=== PATIENT | female | born 1980 ===

== ENCOUNTER 2022-08-21 01:24 | Emergency (ER) | payer OTHER, SELFPAY ==
--- OUTSIDE RECORDS SUMMARY | 2022-08-21 01:29 | XMS REPORT | Continuity of Care Document ---
:1980 Author Organization [facility] t Address [address] [place] [address] Care Team Providers Name Role Phone Hillary Brito Primary Care Physician TOSHA ORTEGA Attending Clinician Unavailable HILLARY HELMS Attending Clinician Unavailable Doctor Unassigned, [place] Attending Clinician Unavailable KARTIK ANNA Attending Clinician Unavailable Ember Cornejo MA Attending Clinician Unavailable Tosha Higginbotham Attending Clinician Quentin Carmona Attending Clinician Payers Payer Name Policy Type Policy Number Effective Date Expiration Date S ource Problems Condition Condition Condition Status Onset Resolution Last Treating Co mments Source Name Details Category Date Date Treatment Clinician Date Overweight Overweight Disease Active U nivers (BMI (BMI 9-03 ity of 25.0-29.9) 25.0[place]29.9[place] Encounter Encounter Disease Active Uni vers for other for other 08-03 ity of general general 00:00: [place] counseling counseling 00 Me dical or advice or advice Bran ch on on contracept contracept ion ion Irregular Irregular Disease Active Uni vers menstrual menstrual 08-03 ity of cycle cycle 00:00: [address] Depression Depression Disease Active U nivers , , 08-03 it[place]specif[place] Medical depression depression Br anch type type O36.8290 - O36.8290 Diagnosis Active 2019-02-18 Memoria - 02-18 14:38:00 l ANEMIA AND ANEMIA AND 00:01: [place] THROMBOCYT THROMBOCYT 00 OP OP Active 02/18/2019 MH OPID Omar Allergies, Adverse Reactions, Alerts Allergy Allergy Status Severity Reaction(s) Onset Inactive Treating Comm ents Source Name Type Date Date Clinician No Known DA Active U 2018-12 [facility] Allergie [facility] 00:00: [address] NO KNOWN Drug Active Univers ALLERGIE Class ity of S [facility] Social History Social Habit Start Date Stop Date Quantity Comments Source Exposure to 2022-07-21 2022-07-31 Not sure [facility] SARS-CoV-2 00:00:00 23:57:00 [facility] (event) [place] Tobacco use and 2021-08-03 2021-08-03 Smokeless tobacco Un iversity of exposure 00:00:00 00:00:00 non-user [facility] Alcohol intake 2021-08-03 2021-08-03 Ex-drinker [facility] 00:00:00 00:00:00 (finding) [facility] Sex Ass[birth year] Universit y of 00:00:00 00:00:00 [facility] Smoking Status Start Date Stop Date Source Never smoked tobacco [facility] Medications Ordered Filled Start Stop Current Ordering Indication Dosage Frequency Signature Comments Components Source Medication Medication Date Date Medication? Clinician (SIG) Name Name No known No Univers medications 08-03 ity of 13:11: [address] No known No No known Unive rs medications 08-03 medication it y of 13:11: s [place] 28 Medical Branch TRIMETHOPRI 2008-12- No [id number] Take 2 Univers M-SULFAMETH 01-03 tablets by i ty of OXAZOLE 00:00: 00:00 mouth [place] 160-800 MG 00 :00 every 12 Medic al ORAL TAB hours for Branch ten days ULTRA 50 2008-121- No [id number] one tablet Univers MG ORAL TAB 01-03 PO every ity of 00:00: 00:00 6-8 hours [place] 00 :00 as needed Medical for pain Branch Immunizations Ordered Filled Immunization Date Status Comments [facility] e Immunization Name Name SARS-COV-2 COVID-19 2021-10-24 Completed Unive rsity of MODERNA VACCINE 00:00:00 [facility] ical Branch SARS-COV-2 COVID-19 2021-10-24 Completed Unive rsity of MODERNA 12+ YRS 00:00:00 [facility] VACCINE Branch SARS-COV-2 COVID-19 2021-03-28 Completed Unive rsity of MODERNA VACCINE 00:00:00 [facility] Branch SARS-COV-2 COVID-19 2021-03-28 Completed Unive rsity of MODERNA 12+ YRS 00:00:00 [facility] VACCINE Branch SARS-COV-2 COVID-19 2021-02-28 Completed Unive rsity of MODERNA VACCINE 00:00:00 [facility] SARS-COV-2 COVID-19 2021-02-28 Completed Unive rsity of MODERNA 12+ YRS 00:00:00 [facility] VACCINE [place] Vital Signs Vital Name Observation Time Observation Value Comments Source Systolic blood 2021-08-03 17:59:00 134 mm[Hg] Univer sity of pressure [facility] Diastolic blood 2021-08-03 17:59:00 86 mm[Hg] Unive rsity of pressure [facility] Heart rate 2021-08-03 17:58:00 81 /min [facility] Body temperature 2021-08-03 17:58:00 36.28 Deisy [facility] Respiratory rate 2021-08-03 17:58:00 16 /min [facility] Body height 2021-08-03 17:58:00 162.6 cm [facility] Body weight 2021-08-03 17:58:00 74.299 kg [facility] BMI 2021-08-03 17:58:00 28.12 kg/m2 [facility] Procedures Procedure Date / Time Performed Performing Clinician [facility] e CONSENT/REFUSAL FOR 2022-08-01 18:45:29 Doctor Unassigned, No Un [facility] DIAGNOSIS AND Name [facility] TREATMENT POCT TEST 2021-08-03 18:02:00 Tosha Ortega [facility] Encounters Start End Encounter Admission Attending Care Care Encounter Source Date/Time Date/Time Type Type Clinicians Facility Department ID 2022-08-06 2022-08-06 Outpatient Rodrick ORTEGA [facility] [id number] Univers 13:00:00 13:00:00 TOSHA [facility] 2022-08-01 2022-08-01 Outpatient R AKINSIPE, [facility] [id number] Univers 14:15:00 14:15:00 HILLARY [id number] [facility] 2022-08-01 2022-08-01 Outpatient R AKINSIPE, [facility] [id number] Univers 13:45:00 13:45:00 HILLARY [facility] 2022-08-01 2022-08-01 Orders Doctor DE LEON [id number] Univers 00:00:00 00:00:00 Only Unassigned, BEBE 350.1.13.10 ity of [place] [facility] 4.2.7.2.686 Ivan as [id number] [address] 2022-07-25 2022-07-25 Outpatient R AKINSIPE, [facility] [id number] Univers 14:15:00 14:15:00 HILLARY [id number] [facility] 2022-07-25 2022-07-25 Outpatient R AKINSIPE, [facility] [id number] Univers 14:15:00 14:15:00 [facility] 2022-06-05 Outpatient R WILFRIDO, [facility] [id number] Univers 14:15:00 14:15:00 KARTIK [id number] ity [facility] [place] [facility] 2022-05-30 2022-05-30 Case JEOVANY Cornejo [id number] Univers 00:00:00 00:00:00 Management Ember KEARNS 350.1.13.10 [place] [id number] [address] 2021-08-03 2021-08-03 [facility] [id number] Univers 12:48:24 13:42:30 Visit Tosha Rodrick IMMIGRATION INSPECTOR 350.1.13.10 ity of [facility] 4.2.7.2.686 Ivan as MATERNAL [id number] [facility] ical & CHILD [address] [place] [address] 2021-08-03 2021-08-03 Outpatient R JORDAN [facility] [id number] Univers 13:00:00 13:00:00 ANETAROSSANA posaday o f [facility] 2021-08-03 2021-08-03 Outpatient R [facility] [id number] Univers 12:30:00 12:30:00 [id number] [facility] 2019-02-18 2019-02-19 Outpt Diag nullFlavo [facility] [id number] Memoria 19:29:00 04:59:00 Services r Outpatient 00 l Imaging [facility] 2019-02-18 2019-02-19 Outpt Diag nullFlavo [facility] [id number] Memoria 19:29:00 04:59:00 Services r Outpatient 00 l Imaging [facility] 2019-02-18 2019-02-18 Outpatient Mathew, [facility] [id number] 14:29:00 23:59:00 Jacquin A 00 Results Test Description Test Time Test Comments Results Result Comments Source POCT TEST 2021-08-03 18:03:00 Test Item Value Reference Range Interpretation Comme nts POCT PREG (test code = 1605) Negative On board controls acceptable with C Line (test code = 3574) Yes POCT PREG LOT # (test code = 3575) POCT PREG TEST DATE (test code = 3576) [facility]2019-09-23 10:02:00 Test Item Value Reference Range Interpretation Comments LACTIC DEHYDROGENASE(LDH) (test 250 units/L 81-234 H code = LDH) CBC W/AUTO [id number] 10:02:00 Test Item Value Reference Range Interpretation Comments WHITE BLOOD CELL (test code = WBC) 11.7 K/mm3 6.6-12.1 N RED BLOOD CELL (test code = RBC) 2.88 M/mm3 3.45-5.01 L HEMOGLOBIN (test code = HGB) 8.1 g/dL 10.7-13.9 L HEMATOCRIT (test code = HCT) 25.2 % 32.1-42.1 L MEAN CELL VOLUME (test code = MCV) 88 fL 84.1-94.8 N MEAN CELL HGB (test code = MCH) 28.1 pg 27-35 N MEAN CELL HGB CONCETRATION (test 32.1 gm/dL 32.2-34.1 L code = MCHC) RED CELL DISTRIBUTION WIDTH (test 14.9 % 12.4-16.5 N code = RDW) PLATELET COUNT (test code = PLT) 225 K/mm3 133-385 N IMMATURE PLATELET FRACTION (test 0.0 % 0.0-10.8 N code = IPF) MEAN PLATELET VOLUME (test code = 9.9 fl 9.1-12.7 N MPV) NEUTROPHIL % (test code = NT%) 76.3 % 56.5-79.4 N LYMPHOCYTE % (test code = LY%) 11.4 % 14.3-34.3 L MONOCYTE % (test code = MO%) 5.9 % 5.1-10.4 N EOSINOPHIL % (test code = EO%) 1.6 % 0.1-3.0 N BASOPHIL % (test code = BA%) 0.3 % 0.1-1.0 N NEUTROPHIL # (test code = NT#) 8.9 K/mm3 LYMPHOCYTE # (test code = LY#) 1.3 K/mm3 MONOCYTE # (test code = MO#) 0.7 K/mm3 EOSINOPHIL # (test code = EO#) 0.19 K/mm3 BASOPHIL # (test code = BA#) 0.0 K/mm3 RBC MORPHOLOGY REQUIRED (test code NORMAL NORMAL = RBCM) PLATELET MORPHOLOGY REQUIRED (test NORMAL NORMAL code = PLTMR) PLACENTA THIRD [id number] 13:26:00 RUN DATE: 09/22/19 [facility] PAGE 1 RUN TIME: 1721 Specimen Inquiry RUN USER: INTERFACE --------- ---PATIENT: AAN HILL LOC: MABEL U #: [id number] AGE/SX: 39/F ROOM: [facility] RE09/18/19REG DR: Quentin Carmona MD : 84 BED: A DIS: STATUS: ADM IN TLOC: SPEC #: [id number] RECD: 09/19/19STATUS: LYLY REQ #: [id number] CASSIE: 09/19/19- SUBM DR: Quentin Carmona MD ENTERED: 09/20/19 SP TYPE: PLACIII OTHR DR: ORDERED: LEVEL V SURGICA CODES: [id number] - PLACENTA, NOS PROCEDURES: LEVEL V SURGICA (Incomplete) TISSUES: PLACENTA, NOS - PLACENTA CLINICAL HISTORY 39 year old, 40.3 weeks, [id number], vaginal delivery, non-reassuring monitoring (kr) FINAL DIAGNOSIS Placenta, delivery: - placenta with 3rd trimester morphology (720 gm), mean placental weight at 40 weeks - 537 gm (placenta is large for dates, greater than the 90th percentile for weight at 40 weeks) - foci of chorangiosis - foci of increased perivillous fibrin - trivascular umbilical cord and membranes - free of inflammation. CPT code(s): 74717 pkg/kr dt: 09/22/19 GROSS DESCRIPTION The specimen was received in a container, labeled with the patient's name, unit number and designated "placenta". The following attributes are observed: Cord insertion: 2 cm from margin Cord length: 36 cm Number of vessels: 3 Cord color:Bhandari Other cord findings: Less than 12 twists/10 cm surface findings: Steel blue, wrinkled, glistening with focal subchorionic fibrin deposition and slight green discoloration Vasculature: Displays unremarkable blood vasculature Membranes rupture site: Marginal Membrane color: Bhandari Other membranefindings: Thickened CONTINUED ON NEXT PAGE RUN DATE: 09/22/19 [facility] PAGE 2 RUN TIME: 1721 Specimen Inquiry RUN USER: INTERFACE SPEC #: [id number] PATIENT: ANA HILL #[id number] (Continued)---- -------- GROSS DESCRIPTION (Continued) The trimmed placental weight: 720 gm Disk measurement: 19.0 x 19.0 x 3.5 cm in greatest dimension Accessory lobes: None Maternal surface: Lobulated and intact Parenchyma: Red, beefy, and spongy with peripheral fibrosis Parenchyma lesions: None Cassettes: A1 through A4 jm/kr 09/20/19 @ 1127 MICROSCOPIC DESCRIPTION The placenta is composed of small vascular villi. Foci of chorangiosisare present. The trivascular umbilical cord and membranes are free of inflammation. lois dt: 09/22/19 Signed Samara Aponte 09/22/19 1326 END OF REPORT LACTIC DEHYDROGENASE(LDH)2019-09-22 10:51:00 Test Item Value Reference Range Interpretation Comments LACTIC DEHYDROGENASE(LDH) (test 253 units/L 81-234 H code = LDH) CBC W/AUTO [id number] 07:43:00 Test Item Value Reference Range Interpretation Comments WHITE BLOOD CELL (test code = WBC) 12.7 K/mm3 6.6-12.1 H RED BLOOD CELL (test code = RBC) 2.88 M/mm3 3.45-5.01 L HEMOGLOBIN (test code = HGB) 8.0 g/dL 10.7-13.9 L HEMATOCRIT (test code = HCT) 25.1 % 32.1-42.1 L MEAN CELL VOLUME (test code = MCV) 87 fL 84.1-94.8 N MEAN CELL HGB (test code = MCH) 27.8 pg 27-35 N MEAN CELL HGB CONCETRATION (test 31.9 gm/dL 32.2-34.1 L code = MCHC) RED CELL DISTRIBUTION WIDTH (test 15.0 % 12.4-16.5 N code = RDW) PLATELET COUNT (test code = PLT) 185 K/mm3 133-385 N IMMATURE PLATELET FRACTION (test 0.0 % 0.0-10.8 N code = IPF) MEAN PLATELET VOLUME (test code = 10.3 fl 9.1-12.7 N MPV) NEUTROPHIL % (test code = NT%) 75.5 % 56.5-79.4 N LYMPHOCYTE % (test code = LY%) 13.1 % 14.3-34.3 L MONOCYTE % (test code = MO%) 7.6 % 5.1-10.4 N EOSINOPHIL % (test code = EO%) 1.7 % 0.1-3.0 N BASOPHIL % (test code = BA%) 0.2 % 0.1-1.0 N NEUTROPHIL # (test code = NT#) 9.6 K/mm3 LYMPHOCYTE # (test code = LY#) 1.7 K/mm3 MONOCYTE # (test code = MO#) 1.0 K/mm3 EOSINOPHIL # (test code = EO#) 0.22 K/mm3 BASOPHIL # (test code = BA#) 0.0 K/mm3 RBC MORPHOLOGY REQUIRED (test code NORMAL NORMAL = RBCM) PLATELET MORPHOLOGY REQUIRED (test NORMAL NORMAL code = PLTMR) COMPREHENSIVE METABOLIC [id number] 06:40:00 Test Item Value Reference Range Interpretation Comments SODIUM (test code = NA) 141 mEq/L 135-145 N POTASSIUM (test code = K) 4.5 mEq/L 3.5-5.0 N CHLORIDE (test code = CL) 110 mEq/L 100-115 N CARBON DIOXIDE (test code = CO2) 25 mEq/L 22-31 N ANION GAP (test code = GAP) 10.90 10-20 N GLUCOSE (test code = GLU) 78 mg/dL 65-110 N BLOOD UREA NITROGEN (test code = 7 mg/dL 7-18 N BUN) GLOMERULAR FILTRATION RATE (test 112 ml/min >60 N code = GFR) CREATININE (test code = CREAT) 0.6 mg/dL 0.5-1.0 N TOTAL PROTEIN (test code = PROT) 4.5 gm/dL 6.3-8.2 L ALBUMIN (test code = ALB) 1.8 gm/dL 3.4-4.8 L CALCIUM (test code = CA) 7.4 mg/dL 8.4-10.2 L BILIRUBIN TOTAL (test code = 0.2 mg/dL 0.2-1.0 N BILT) SGOT/AST (test code = AST) 37 units/L 15-37 N SGPT/ALT (test code = ALT) 65 units/L 12-78 N ALKALINE PHOSPHATASE TOTAL (test 136 units/L 46-116 H code = ALKP) LACTIC [id number] 15:31:00 Test Item Value Reference Range Interpretation Comments LACTIC ACID (test code = LACT) 0.6 MMOL/L 0.5-2.2 N - US PELVIS [id number] 09:53:00 Patient Name: ANA HILL Unit No: [id number] EXAMS: CPT CODE: [id number] US PELVIS COMPLETE 28238 Pelvic US performed September 21, 2019 0909 hours. COMPARISON: CT September 20, 2019. CLINICAL HISTORY: 2 days, pain. DISCUSSION: Real-time appiah scale sonography performed of the pelvis via the transabdominal approach. The uterus measures approximately 20.3 x 12.5 x 17.1 cm and contains no focal myometrial abnormalities. Fluid and debris are seen within the endometrial cavity, compatible with blood and/or products of conception. Endometrial thickness 2.2 cm. No focal area of increased vascularity or calcification. Neither ovary is reproducibly identified. No significant free fluid in seen in the cul de sac. IMPRESSION: 1. uterus with nonspecific fluid and debris within the endometrial cavity. Endometrial thickness approximately 2 cm at 0953 Reported and signed by: Nat Rai MD CC: Quentin Carmona MD Technologist: Parish Donald RDMS, RVT Probe: Trnscrbd D/ (0953) tRADHAR.NMG Orig Print D/T: S: 09/21/2019 (0957) [facility] NAME: ANA HILL Radiology Department PHYS: JACY Crocker MathewQuentin Shadia Carlson [address] [place] : 1980 AGE: 39 SEX: F [place] [address] LOC: F.2220 A PHONE #: [phone] EXAM DATE: 09/21/2019 STATUS: ADM IN FAX #: [phone] RAD NO: [id number] Page 1 Signed Report Patient Name: ANA HILL Unit No: [id number] EXAMS: CPT CODE: [id number] [facility] [address] <Continued> [facility] NAME: ANA HILL Radiology Department PHYS: JACY Crocker MathewQuentin Shadia Carlson [address] : 1980 AGE: 39 SEX: F [place] [address] LOC: F.2220 A PHONE #: [phone] EXAM DATE: 09/21/2019 STATUS: ADM IN FAX #: [phone] RAD NO: [id number] Page 2 Signed Report- US ABDOMEN LTD 2019-09-21 09:50:00 Patient Name: ANA HILL Unit No: [id number] EXAMS: CPT CODE: [id number] US ABDOMEN LTD 91032 US ofthe right upper quadrant performed September 21, 2019 . 0904 hours CLINICAL HISTORY: 2 days postpartumwith abdominal pain . COMPARISON: CT September 20, 2019 . DISCUSSION: Real time appiah scale sonography was performed of the right upper quadrant. The liver is normal in echogenicity. It is mildly prominent measuring approximately 17 cm in the midclavicular line. There is no evidence of intra or extra hepatic ductal dilatation. No sonographic evidence of cholelithiasis. There is no gallbladder wall thickening or pericholecystic fluid. The sonographic Reynolds's sign is reported as negative. Trace amount of free fluid is seen in the abdomen. The body and proximal tail of the pancreas are sonographically normal in appearance. The remainder is poorly seen due to overlying bowel gas. The right kidney is sonographically normal in appearance. It measures 11.7 cm in length and there is no sonographic evidenceof hydronephrosis, mass or calculi. The visualized portions of the aorta and IVC are within normal limits. IMPRESSION: Minimal hepatomegaly, measuring 17.1 cm at the midclavicular line. Trace ascites. at 0950 Reported and signed by: Nat Rai MD CC: Quentin Carmona MD Technologist: Parish Donald RDMS, RVT Probe: Trnscrbd D/ (0950) t.SDR.NMG Orig Print D/T: S: 09/21/2019 (0953) [facility] NAME: ANA HILL Radiology Department PHYS: Quentin Larkin [address] : 1980 AGE: 39 SEX: F [place] [address] LOC: .0 A PHONE #: [phone] EXAM DATE: 09/21/2019 STATUS: ADM IN FAX #: [phone] RAD NO: [id number] Page 1 Signed Report Patient Name: ANA HILL Unit No: [id number] EXAMS: CPT CODE: [id number] ABDOMEN LTD 67498 <Continued> [facility] NAME: ANA HILL Radiology Department PHYS: Quentin Larkin [address]OB: 1980 AGE: 39 SEX: F [place], [place] [address] LOC: F.2220 A PHONE #: [phone] EXAM DATE: 09/21/2019 STATUS: ADM IN FAX #: [phone] RAD NO: [id number] Page 2 Signed ReportPIH [id number] 07:07:00 Test Item Value Reference Range Interpretation Comments CREATININE (test code = CREAT) 0.7 mg/dL 0.5-1.0 N SGOT/AST (test code = AST) 39 units/L 15-37 H SGPT/ALT (test code = ALT) 77 units/L 12-78 N LACTIC DEHYDROGENASE(LDH) (test 259 units/L 81-234 H code = LDH) COMPREHENSIVE METABOLIC [id number] 07:07:00 Test Item Value Reference Range Interpretation Comments SODIUM (test code = NA) 139 mEq/L 135-145 N POTASSIUM (test code = K) 4.0 mEq/L 3.5-5.0 N CHLORIDE (test code = CL) 108 mEq/L 100-115 N CARBON DIOXIDE (test code = CO2) 25 mEq/L 22-31 N ANION GAP (test code = GAP) 10.30 10-20 N GLUCOSE (test code = GLU) 106 mg/dL 65-110 N BLOOD UREA NITROGEN (test code = 5 mg/dL 7-18 L BUN) GLOMERULAR FILTRATION RATE (test 94 ml/min >60 N code = GFR) TOTAL PROTEIN (test code = PROT) 4.6 gm/dL 6.3-8.2 L ALBUMIN (test code = ALB) 1.9 gm/dL 3.4-4.8 L CALCIUM (test code = CA) 7.1 mg/dL 8.4-10.2 L BILIRUBIN TOTAL (test code = 0.3 mg/dL 0.2-1.0 N BILT) ALKALINE PHOSPHATASE TOTAL (test 159 units/L 46-116 H code = ALKP) BILIRUBIN DIRECT AND [id number] 07:07:00 Test Item Value Reference Range Interpretation Comments BILIRUBIN DIRECT (test code = BILD) 0.1 mg/dL <0.2 N BILIRUBIN INDIRECT (test code = 0.2 mg/dL 0.1-1.1 BILIND) CBC W/AUTO [id number] 06:13:00 Test Item Value Reference Range Interpretation Comments WHITE BLOOD CELL (test code = WBC) 18.8 K/mm3 6.6-12.1 H RED BLOOD CELL (test code = RBC) 3.08 M/mm3 3.45-5.01 L HEMOGLOBIN (test code = HGB) 8.9 g/dL 10.7-13.9 L HEMATOCRIT (test code = HCT) 27.4 % 32.1-42.1 L MEAN CELL VOLUME (test code = MCV) 89 fL 84.1-94.8 N MEAN CELL HGB (test code = MCH) 28.9 pg 27-35 N MEAN CELL HGB CONCETRATION (test 32.5 gm/dL 32.2-34.1 N code = MCHC) RED CELL DISTRIBUTION WIDTH (test 15.5 % 12.4-16.5 N code = RDW) PLATELET COUNT (test code = PLT) 172 K/mm3 133-385 N IMMATURE PLATELET FRACTION (test 0.0 % 0.0-10.8 N code = IPF) MEAN PLATELET VOLUME (test code = 10.7 fl 9.1-12.7 N MPV) NEUTROPHIL % (test code = NT%) 87.0 % 56.5-79.4 H LYMPHOCYTE % (test code = LY%) 5.7 % 14.3-34.3 L MONOCYTE % (test code = MO%) 5.5 % 5.1-10.4 N EOSINOPHIL % (test code = EO%) 0.4 % 0.1-3.0 N BASOPHIL % (test code = BA%) 0.2 % 0.1-1.0 N NEUTROPHIL # (test code = NT#) 16.3 K/mm3 LYMPHOCYTE # (test code = LY#) 1.1 K/mm3 MONOCYTE # (test code = MO#) 1.0 K/mm3 EOSINOPHIL # (test code = EO#) 0.08 K/mm3 BASOPHIL # (test code = BA#) 0.0 K/mm3 RBC MORPHOLOGY REQUIRED (test code NORMAL NORMAL = RBCM) PLATELET MORPHOLOGY REQUIRED (test NORMAL NORMAL code = PLTMR) CBC W/AUTO [id number] 15:10:00 Test Item Value Reference Range Interpretation Comments WHITE BLOOD CELL (test code = WBC) 18.0 K/mm3 6.6-12.1 H RED BLOOD CELL (test code = RBC) 3.48 M/mm3 3.45-5.01 N HEMOGLOBIN (test code = HGB) 9.9 g/dL 10.7-13.9 L HEMATOCRIT (test code = HCT) 30.0 % 32.1-42.1 L MEAN CELL VOLUME (test code = MCV) 86 fL 84.1-94.8 N MEAN CELL HGB (test code = MCH) 28.4 pg 27-35 N MEAN CELL HGB CONCETRATION (test 33.0 gm/dL 32.2-34.1 N code = MCHC) RED CELL DISTRIBUTION WIDTH (test 14.9 % 12.4-16.5 N code = RDW) PLATELET COUNT (test code = PLT) 185 K/mm3 133-385 N IMMATURE PLATELET FRACTION (test 0.0 % 0.0-10.8 N code = IPF) MEAN PLATELET VOLUME (test code = 10.3 fl 9.1-12.7 N MPV) NEUTROPHIL % (test code = NT%) 88.8 % 56.5-79.4 H LYMPHOCYTE % (test code = LY%) 6.1 % 14.3-34.3 L MONOCYTE % (test code = MO%) 4.2 % 5.1-10.4 L EOSINOPHIL % (test code = EO%) 0.1 % 0.1-3.0 N BASOPHIL % (test code = BA%) 0.2 % 0.1-1.0 N NEUTROPHIL # (test code = NT#) 16.0 K/mm3 LYMPHOCYTE # (test code = LY#) 1.1 K/mm3 MONOCYTE # (test code = MO#) 0.8 K/mm3 EOSINOPHIL # (test code = EO#) 0.02 K/mm3 BASOPHIL # (test code = BA#) 0.0 K/mm3 RBC MORPHOLOGY REQUIRED (test code NORMAL NORMAL = RBCM) PLATELET MORPHOLOGY REQUIRED (test NORMAL NORMAL code = PLTMR) ACUTE HEPATITIS [id number] 12:36:00 Test Item Value Reference Range Interpretation Comments AB HEPATITIS A IGM (test code = NONREACTIVE NONREACTIVE HAVMAB) AG HEPATITIS B SURFACE (test code NONREACTIVE NONREACTIVE = HBSAG) AB HEPATITIS B CORE IGM (test NONREACTIVE NONREACTIVE code = HBCMAB) AB HEPATITIS C (test code = NONREACTIVE NONREACTIVE HCVAB) SIGNAL TO CUTOFF (test code = 0.11 <0.80 N CUTOFF) [id number] 11:59:00 Test Item Value Reference Range Interpretation Comments AMYLASE (test code = DAYANARA) 29 units/L 30-110 L [id number] 11:59:00 Test Item Value Reference Range Interpretation Comments LIPASE (test code = LIP) 165 units/L 73-393 N ACUTE HEPATITIS [id number] 11:59:00 Test Item Value Reference Range Interpretation Comments AB HEPATITIS A IGM (test code = NONREACTIVE HAVMAB) AG HEPATITIS B SURFACE (test code NONREACTIVE NONREACTIVE = HBSAG) AB HEPATITIS B CORE IGM (test NONREACTIVE code = HBCMAB) AB HEPATITIS C (test code = NONREACTIVE HCVAB) SIGNAL TO CUTOFF (test code = <0.80 CUTOFF) - CT ABD PELVIS [id number] 08:53:00 Patient Name: ANA HILL Unit No: [id number] EXAMS: CPT CODE: [id number] CT ABD PELVIS W/CONT [id number] HISTORY: Abdominal pain. COMPARISON: None. Computed tomography of abdomen and pelvis was performed following oral and intravenous contrast administration. Delayed images were also performed. Heart and 25 mL of Isovue-300 was given as intravenous contrast. One or more of the following dose techniques were utilized; automated exposure control, adjustment of the mA and/or kV according to patient size, and/or utilization of iterative reconstruction technique. DLP: 1609.25 mGy-cm. Higher images demonstrate lung bases to be normal. There is mild enlargement of the left lobe of liver with a subcentimeter hepatic cyst identified in anterior segment of right lobe of liver. Gallbladder is mildly dis tended. No calcified stones are present in the gallbladder. No biliary ductal dilatation is seen. Pancreas, adrenal glands, spleen, and right kidney have normal CT appearance. A subcentimeter cortical cyst is present in the left kidney. There is no evidence of hydronephrosis or obstructive uropathy oneither side. Ascites is identified with fluid surrounding the liver as well as small amount in paracolic spaces. Small amount of fluid is also present in the lesser sac posterior to the stomach. Findings are nonspecific however, possibility of HELLP syndrome should be considered. Clinical and laboratory correlation is recommended. CT images taken through the lower abdomen and pelvis demonstrate that the appendix has been surgically removed by history. Uterus is enlarged secondary to recent delivery.High density material is seen in lower uterine segment. This may be related to postdelivery blood clots and/or to 10 products of conception. Clinical correlation and if indicated, ultrasound is recommended for further evaluation. There is no evidence of abnormal adnexal mass or abnormal fluid collection present in the pelvis. No evidence of pelvic adenopathy is noted. IMPRESSION: [facility] NAME: ANA HILL Radiology Department PHYS: YASFLACA Crocker Quentin Carmona [address] : 1980 AGE: 39 SEX: F [place], [place] [address] LOC: A PHONE #: [phone] EXAM DATE: 09/20/2019 STATUS: ADM IN FAX #: [phone] RAD NO: [id number] Page 1 Signed Report 1 Patient Name: ANA HILL Unit No: [id number] EXAMS: CPT CODE: [id number] CT ABD PELVIS W/CONT 28806 < Continued> 1. Ascites noted in upper abdomen with mild enlargement of left lobe of liver. Findings although not pathognomonic are suspicious for HELLP syndrome. 2. Enlarged uterus with high density material in endometrial cavity thought to be secondary to blood products and/or retained products. Clinical correlation with appropriate follow-up is recommended. 3. Incidental subcentimeter hepatic cyst and left renal cyst. at 0853 Reported and signed by: Rayshawn Singh MD CC: Quentin Carmona MD Technologist: Delbert Liu, RT, CT CTDI: 15.82 DLP: 1609.25 Trnscrbd D/ (0853) [facility] NAME: ANA HILL Radiology Department PHYS: RAMYTerrance Quentin Bryan [address] : 1980 AGE: 39 SEX: F [place], [place] [address] LOC: A PHONE #: [phone] EXAM DATE: 09/20/2019 STATUS: ADM IN FAX #: [phone] RAD NO: [id number] Page 2 Signed Report 1 Patient Name: ANA HILL Unit No: [id number] EXAMS: CPT CODE: [id number] CT ABD PELVIS W/CONT 18363 <Continued> Orig Print D/T: S: 09/20/2019 (0856) [facility] NAME: ANA HILL Radiology Department PHYS: Quentin Larkin [address] : 1980 AGE: 39 SEX: F [place], [place] [address] LOC: F.2011 A PHONE #: [phone] EXAM DATE: 09/20/2019 STATUS: ADM IN FAX #: [phone] RAD NO: [id number] Page 3 Signed Report 1P PANEL 2019-09-20 08:15:00 Test Item Value Reference Range Interpretation Comments CREATININE (test code = CREAT) 0.6 mg/dL 0.5-1.0 N SGOT/AST (test code = AST) 44 units/L 15-37 H SGPT/ALT (test code = ALT) 79 units/L 12-78 H LACTIC DEHYDROGENASE(LDH) (test 288 units/L 81-234 H code = LDH) BILIRUBIN DIRECT AND [id number] 08:15:00 Test Item Value Reference Range Interpretation Comments BILIRUBIN TOTAL (test code = BILT) 0.2 mg/dL 0.2-1.0 N BILIRUBIN DIRECT (test code = BILD) 0.1 mg/dL <0.2 N BILIRUBIN INDIRECT (test code = 0.1 mg/dL 0.1-1.1 N BILIND) CBC W/AUTO [id number] 07:53:00 Test Item Value Reference Range Interpretation Comments WHITE BLOOD CELL (test 17.0 K/mm3 6.6-12.1 H Resul ts verified by code = WBC) repeat analysis RED BLOOD CELL (test 3.66 M/mm3 3.45-5.01 N code = RBC) HEMOGLOBIN (test code = 10.2 g/dL 10.7-13.9 L HGB) HEMATOCRIT (test code = 31.0 % 32.1-42.1 L HCT) MEAN CELL VOLUME (test 85 fL 84.1-94.8 N code = MCV) MEAN CELL HGB (test code 27.9 pg 27-35 N = MCH) MEAN CELL HGB 32.9 gm/dL 32.2-34.1 N CONCETRATION (test code = MCHC) RED CELL DISTRIBUTION 14.6 % 12.4-16.5 N WIDTH (test code = RDW) PLATELET COUNT (test 192 K/mm3 133-385 N code = PLT) IMMATURE PLATELET 0.0 % 0.0-10.8 N FRACTION (test code = IPF) MEAN PLATELET VOLUME 10.9 fl 9.1-12.7 N (test code = MPV) NEUTROPHIL % (test code 84.5 % 56.5-79.4 H = NT%) LYMPHOCYTE % (test code 8.5 % 14.3-34.3 L = LY%) MONOCYTE % (test code = 5.6 % 5.1-10.4 N MO%) EOSINOPHIL % (test code 0.4 % 0.1-3.0 N = EO%) BASOPHIL % (test code = 0.2 % 0.1-1.0 N BA%) NEUTROPHIL # (test code 14.4 K/mm3 = NT#) LYMPHOCYTE # (test code 1.5 K/mm3 = LY#) MONOCYTE # (test code = 1.0 K/mm3 MO#) EOSINOPHIL # (test code 0.06 K/mm3 = EO#) BASOPHIL # (test code = 0.0 K/mm3 BA#) RBC MORPHOLOGY REQUIRED NORMAL NORMAL (test code = RBCM) PLATELET MORPHOLOGY NORMAL NORMAL REQUIRED (test code = PLTMR) H [id number] 20:28:00 Test Item Value Reference Range Interpretation Comments CREATININE (test code = CREAT) 0.7 mg/dL 0.5-1.0 N SGOT/AST (test code = AST) 49 units/L 15-37 H SGPT/ALT (test code = ALT) 94 units/L 12-78 H LACTIC DEHYDROGENASE(LDH) (test 241 units/L 81-234 H code = LDH) BLOOD UREA [id number] 20:28:00 Test Item Value Reference Range Interpretation Comments BLOOD UREA NITROGEN (test code = BUN) 9 mg/dL 7-18 N BILIRUBIN DIRECT AND [id number] 20:28:00 Test Item Value Reference Range Interpretation Comments BILIRUBIN TOTAL (test code = BILT) 0.3 mg/dL 0.2-1.0 N BILIRUBIN DIRECT (test code = BILD) 0.1 mg/dL <0.2 N BILIRUBIN INDIRECT (test code = 0.2 mg/dL 0.1-1.1 N BILIND) PROTHROMBIN [id number] 20:19:00 Test Item Value Reference Range Interpretation Comments PROTHROMBIN TIME PATIENT (test code 10.2 secs 10.4-12.4 L = PTP) THROMBOPLASTIN TIME [id number] 20:19:00 Test Item Value Reference Range Interpretation Comments THROMBOPLASTIN TIME PARTIAL (test 29.8 secs 22-38 N code = PTT) CBC W/AUTO [id number] 17:58:00 Test Item Value Reference Range Interpretation Comments WHITE BLOOD CELL (test code = WBC) 10.9 K/mm3 6.6-12.1 N RED BLOOD CELL (test code = RBC) 4.06 M/mm3 3.45-5.01 N HEMOGLOBIN (test code = HGB) 11.5 g/dL 10.7-13.9 N HEMATOCRIT (test code = HCT) 35.0 % 32.1-42.1 N MEAN CELL VOLUME (test code = MCV) 86 fL 84.1-94.8 N MEAN CELL HGB (test code = MCH) 28.3 pg 27-35 N MEAN CELL HGB CONCETRATION (test 32.9 gm/dL 32.2-34.1 N code = MCHC) RED CELL DISTRIBUTION WIDTH (test 14.7 % 12.4-16.5 N code = RDW) PLATELET COUNT (test code = PLT) 184 K/mm3 133-385 N IMMATURE PLATELET FRACTION (test 0.0 % 0.0-10.8 N code = IPF) MEAN PLATELET VOLUME (test code = 10.9 fl 9.1-12.7 N MPV) NEUTROPHIL % (test code = NT%) 73.7 % 56.5-79.4 N LYMPHOCYTE % (test code = LY%) 16.2 % 14.3-34.3 N MONOCYTE % (test code = MO%) 7.6 % 5.1-10.4 N EOSINOPHIL % (test code = EO%) 0.3 % 0.1-3.0 N BASOPHIL % (test code = BA%) 0.5 % 0.1-1.0 N NEUTROPHIL # (test code = NT#) 8.1 K/mm3 LYMPHOCYTE # (test code = LY#) 1.8 K/mm3 MONOCYTE # (test code = MO#) 0.8 K/mm3 EOSINOPHIL # (test code = EO#) 0.03 K/mm3 BASOPHIL # (test code = BA#) 0.1 K/mm3 RBC MORPHOLOGY REQUIRED (test code NORMAL NORMAL = RBCM) PLATELET MORPHOLOGY REQUIRED (test NORMAL NORMAL code = PLTMR) COOXIMETRY [id number] 17:20:00 Test Item Value Reference Range Interpretation Comments HEMOGLOBIN (test code = HGB/ABG) 18.2 g/dL 12-16 H HEMATOCRIT (test code = HCT/ABG) 54 % 37-47 H METHEMOGLOBIN (test code = METHGB) 0.7 % 0.0-1.5 N CAPILLARY BLOOD [id number] 17:20:00 Test Item Value Reference Range Interpretation Comments CAPILLARY BLOOD GAS PH (test code 7.195 7.35-7.45 L = PHC) CAPILLARY BLOOD GAS PCO2 (test 48.7 mmHg code = PCO2C) CAPILLARY BLOOD GAS PO2 (test code 31.2 mmHg = PO2C) CBG HCO3 (test code = HCO3C) 18.4 meq/L CBG BASE EXCESS (test code = BEC) -9.9 CBG O2 SATURATION (test code = 68.3 % SATC) CAPILLARY BLOOD GAS TYPE (test CBLA code = TYPEC) CAPILLARY BLOOD GAS FIO2 (test 21.0 % code = FIO2C) CAPILLARY BLOOD [id number] 17:19:00 Test Item Value Reference Range Interpretation Comments CAPILLARY BLOOD GAS PH (test code 6.944 7.35-7.45 LL = PHC) CAPILLARY BLOOD GAS PCO2 (test 94.4 mmHg code = PCO2C) CBG HCO3 (test code = HCO3C) 20.0 meq/L CBG BASE EXCESS (test code = BEC) -14.3 CAPILLARY BLOOD GAS TYPE (test CBLA code = TYPEC) CAPILLARY BLOOD GAS FIO2 (test 21.0 % code = FIO2C) AG HEPATITIS B [id number] 03:33:00 Test Item Value Reference Range Interpretation Comments AG HEPATITIS B SURFACE (test code NONREACTIVE NONREACTIVE = HBSAG) Comments to Customer Account Coordinator: IN ROOMIS CONSENT FORM SIGNED FOR HIV TESTING? YAB HEPATITIS C [id number] 03:33:00 Test Item Value Reference Range Interpretation Comments AB HEPATITIS C (test code = NONREACTIVE NONREACTIVE HCVAB) SIGNAL TO CUTOFF (test code = 0.11 <0.80 N CUTOFF) Comments to Customer Account Coordinator: IN ROOMIS CONSENT FORM SIGNED FOR HIV TESTING? YASridhar [id number] 03:33:00 Test Item Value Reference Range Interpretation Comments AB TREPONEMA (test code = TREPAB) NONREACTIVE NONREACTIVE Comments to Customer Account Coordinator: IN ROOMIS CONSENT FORM SIGNED FOR HIV TESTING? YASridhar HIV 1 03:33:00 Test Item Value Reference Range Interpretation Comments AB HIV 1 2 (test NONREACTIVE NONREACTIVE Done by [facility] code = [id number]) 4th Gen HIV Ag/Ab Combo Screen Comments to Customer Account Coordinator: IN ROOMIS CONSENT FORM SIGNED FOR HIV TESTING? YCBC W/AUTO [id number] 03:05:00 Test Item Value Reference Range Interpretation Comments WHITE BLOOD CELL (test code = WBC) 10.6 K/mm3 6.6-12.1 N RED BLOOD CELL (test code = RBC) 4.48 M/mm3 3.45-5.01 N HEMOGLOBIN (test code = HGB) 12.6 g/dL 10.7-13.9 N HEMATOCRIT (test code = HCT) 39.5 % 32.1-42.1 N MEAN CELL VOLUME (test code = MCV) 88 fL 84.1-94.8 N MEAN CELL HGB (test code = MCH) 28.1 pg 27-35 N MEAN CELL HGB CONCETRATION (test 31.9 gm/dL 32.2-34.1 L code = MCHC) RED CELL DISTRIBUTION WIDTH (test 14.9 % 12.4-16.5 N code = RDW) PLATELET COUNT (test code = PLT) 173 K/mm3 133-385 N MEAN PLATELET VOLUME (test code = 11.9 fl 9.1-12.7 N MPV) NEUTROPHIL % (test code = NT%) 76.5 % 56.5-79.4 N LYMPHOCYTE % (test code = LY%) 15.4 % 14.3-34.3 N MONOCYTE % (test code = MO%) 5.8 % 5.1-10.4 N EOSINOPHIL % (test code = EO%) 0.7 % 0.1-3.0 N BASOPHIL % (test code = BA%) 0.4 % 0.1-1.0 N NEUTROPHIL # (test code = NT#) 8.1 K/mm3 LYMPHOCYTE # (test code = LY#) 1.6 K/mm3 MONOCYTE # (test code = MO#) 0.6 K/mm3 EOSINOPHIL # (test code = EO#) 0.07 K/mm3 BASOPHIL # (test code = BA#) 0.0 K/mm3 RBC MORPHOLOGY REQUIRED (test code NORMAL NORMAL = RBCM) PLATELET MORPHOLOGY REQUIRED (test NORMAL NORMAL code = PLTMR) - US FET BIO PH TX W/O [id number] 19:11:00 Patient Name: ANA HILL Unit No: [id number] EXAMS: CPT CODE: [id number] US FET BIO PH [place] W/O NST 41021 PROCEDURE: BIOPHYSICAL PROFILE: INDICATION: Leaking fluid. Evaluate ERMA. ESTIMATED GESTATIONAL AGE: 40 weeks 2 days COMPARISON: None FINDINGS: Limited scanning of the gravid uterus was performed as part of a biophysical profile. Presentation: Cephalic heart rate: 140 Placenta location: Anterior and to the maternal left Grade: 3 ERMA: 10.6 cm breathing movements: 0 Gross body movements: 2 tone: 2 Amniotic fluid volume: 2 IMPRESSION: 1. BIOPHYSICAL PROFILE = 6/8. 0 points scored for lack of breathing efforts. 2. Normal ERMA of 10.6 cm. 3. Single living intrauterine gestation in cephalic presentation. Wendy, the patient's nurse, was notified of the biophysical pro file score by Dr. Galeas at 1910 hours on 09/18/2019. SL:01 at 1911 Reported and signed by: Buddy Galeas MD CC: Quentin Carmona MD Technologist: Stef Monet RDMS Probe: Trnscrbd D/ (1910) [email or web address] Orig Print D/T: S: 09/18/2019 (1913) [facility] NAME: ANA HILL Radiology Department PHYS: Quentin Larkin [address] : 1980 AGE: 39 SEX: F [place], [place] [address] LOC: F.SHAILA PHONE #: [phone] EXAM DATE: 09/18/2019 STATUS: REG ER FAX #: [phone] RAD NO: [id number] Page 1 Signed Report Patient Name: ANA HILL Unit No: [id number] EXAMS: CPT CODE: [id number] [facility] BIO PH [place] W/O NST 49719 <Continued> [facility] NAME: ANA HILL Radiology Department PHYS: JACY - Quentin Carmona [address] : 1980 AGE: 39 SEX: F [place], [place] [address] LOC: BartSHAILA PHONE #: [phone] EXAM DATE: STATUS: REG ER FAX #: [phone] RAD NO: [id number] Page 2 Signed Report
[2022-08-21 02:20] LABS: Absolute Lymphocytes (CBC) 1.4 K/uL (0.7-4.9); Lymphocytes % 12.1 % (15.3-44.8); MCV 77.3 fL (80-100); MPV 7.8 fL (7.6-11.3)
[2022-08-21 02:34] LABS: Potassium 3.6 mmol/L (3.5-5.1); Thyroid Stimulating Hormone 1.56 uIU/mL (0.360-3.740); Troponin High Sensitivity 3.8 pg/mL (<58.9)
--- NOTE | 2022-08-21 04:19 | EDPHYS ---
Physician Documentation [facility] Name: Mabel Dan Age: 42 yrs Sex: Female : 1980 Arrival Date: 08/21/2022 Time: 01:27 Bed 11 Private MD: ED Physician Sukhdeep Matson HPI: 08/21 01:40 This 42 yrs old Female presents to ER via Unassigned with complaints of High Blood kb Pressure, Shortness Of Breath, + 18 wks preg.. 01:40 The patient has elevated blood pressure and discovered this not checked, but felt like kb it was high. Onset: The symptoms/episode began/occurred 2 hour(s) ago. Associated signs and symptoms: Pertinent positives: dyspnea. The patient has experienced similar episodes in the past. The patient has not recently seen a physician. Pt reports she started feeling like her blood pressure was elevated 2 hours ago. Reports palpitations, shortness of breath, anxiety, feeling hot, flushed. States she is 18 weeks and had similar symptoms with her previous . Denies preeclampsia during previous pregnancies.. 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 - Social history:: Smoking status: Patient reports the use of cigarette tobacco products. ROS: 01:40 Constitutional: Negative for fever, chills, and weight loss. kb 01:40 Cardiovascular: Positive for palpitations. 01:40 Respiratory: Positive for shortness of breath. 01:40 Psych: Positive for anxiety. 01:40 All other systems are negative. Exam: 01:40 Constitutional: This is a well developed, well nourished patient who is awake, alert, kb and in no acute distress. Head/Face: Normocephalic, atraumatic. ENT: Moist Mucous membranes Respiratory: Respirations even and unlabored. No increased work of breathing. Talking in full sentences Abdomen/GI: Soft, non-tender. No distention Skin: Warm, dry with normal turgor. Normal color. MS/ Extremity: Pulses equal, no cyanosis. Neurovascular intact. Full, normal range of motion. Neuro: Awake and alert, GCS 15, oriented to person, place, time, and situation. Moves all extremities. Normal gait. Psych: Awake, alert, with orientation to person, place and time. Behavior, mood, and affect are within normal limits. 01:40 Cardiovascular: Rate: tachycardic, Rhythm: regular, Pulses: no pulse deficits are appreciated, Heart sounds: normal. 02:44 ECG was reviewed by the Attending Physician. ms3 Vital Signs: 01:41 BP 155 / 82; Pulse 114; Resp 20 S; Temp 97.9(TE); Pulse Ox 100% on R/A; Weight 82.55 kg as6 (R); Height 5 ft. 4 in. (162.56 cm) (R); 03:51 BP 136 / 75; Pulse 103; Resp 17; Temp 98.8; Pulse Ox 100% ; mw1 01:41 Body Mass Index 31.24 (82.55 kg, 162.56 cm) as6 MDM: 01:31 Patient medically screened. kb 01:43 Data reviewed: vital signs, nurses notes. Data interpreted: Pulse oximetry: on room air kb is 100 %. Interpretation: normal. Transition of care: After a detail discussion of the patient's case, care is transferred to Sukhdepe Matson DO. 04:12 ED course: FHT 150 bpm. ms3 04:12 ED course: Discussed labs and physical exam findings with patient. Patient's blood ms3 pressure improved while in the emergency department. Patient states her symptoms have resolved. Patient is alert and oriented x4, in no apparent distress, nontoxic, ambulatory. All questions were answered. Return precautions discussed include worsening symptoms, or any other concerns. 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 08/21 01:36 Order name: Basic Metabolic Panel; Complete Time: 03:04 08/21 01:36 Order name: CBC with Diff; Complete Time: 02:25 08/21 01:36 Order name: Troponin HS; Complete Time: 03:04 08/21 01:36 Order name: EKG; Complete Time: 01:37 08/21 01:36 Order name: Cardiac monitoring; Complete Time: 03:07 08/21 01:36 Order name: TSH; Complete Time: 03:04 08/21 01:36 Order name: EKG - Nurse/Tech; Complete Time: 02:44 08/21 01:36 Order name: IV Saline Lock; Complete Time: 02:06 08/21 01:36 Order name: Labs collected and sent; Complete Time: 02:14 08/21 01:36 Order name: O2 Per Protocol; Complete Time: 03:07 08/21 01:36 Order name: O2 Sat Monitoring; Complete Time: 03:07 08/21 03:34 Order name: Vital Signs; Complete Time: 04:33 ms3 EC:44 Rate is 108 beats/min. Rhythm is regular. QRS [place] is Normal. HI interval is normal. ms3 QRS interval is normal. Clinical impression: Sinus tachycardia. Interpreted by me. Reviewed by me. Administered Medications: No medications were administered Disposition: 08:27 Co-signature as Attending Physician, Sukhdeep Matson DO. ms3 Disposition Summary: 08/21/22 04:18 Discharge Ordered Location: Home ms3 Condition: Stable ms3 Diagnosis - Elevated blood-pressure reading, without diagnosis of hypertension ms3 - 18 weeks gestation of ms3 Followup: ms3 - With: Private Physician - When: 2 - 3 days - Reason: Recheck today's complaints Discharge Instructions: - Discharge Summary Sheet ms3 - Hypertension, Adult ms3 Forms: - Medication Reconciliation Form ms3 - Thank You Letter ms3 - Antibiotic Education ms3 - Prescription Opioid Use ms3 Signatures: Dispatcher [employer] Brianda Suggs, [employer] ADMIN-Sukhdeep Erickson DO DO ms3 Jd Merlos, RN RN as6
--- NOTE | 2022-08-21 04:19 | ER ---
Nurse's Notes [facility] Name: Mabel Dan Age: 42 yrs Sex: Female : 1980 Arrival Date: 08/21/2022 Time: 01:27 Bed 11 Private MD: Diagnosis: Elevated blood-pressure reading, without diagnosis of hypertension;18 weeks gestation of Presentation: 08/21 01:41 Chief complaint: Patient states: pt has been feeling short of breath for 2 hours, hot, as6 anxious, and felt like blood pressure was high. reports to be 18 weeks . pt has not received any care. Coronavirus screen: At this time, the client does not indicate any symptoms associated with coronavirus-19. Ebola Screen: No symptoms or risks identified at this time. Initial Sepsis Screen: Does the patient meet any 2 criteria? No. Patient's initial sepsis screen is negative. Does the patient have a suspected source of infection? No. Patient's initial sepsis screen is negative. Risk Assessment: Do you want to hurt yourself or someone else? Patient reports no desire to harm self or others. Onset of symptoms was August 21, 2022 at 00:00. 01:41 Method Of Arrival: Ambulatory as6 01:41 Acuity: PEREZ 3 as6 Triage Assessment: 01:45 General: Appears in no apparent distress. Behavior is calm, cooperative, appropriate jj7 for age, quiet. Respiratory: No deficits noted. Onset: The symptoms/episode began/occurred today, the patient reports symptoms have resolved. 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 - Social history:: Smoking status: Patient reports the use of cigarette tobacco products. Screenin:45 Abuse screen: Denies threats or abuse. Nutritional screening: No deficits noted. jj7 Tuberculosis screening: No symptoms or risk factors identified. Fall Risk None identified. Assessment: 01:45 Pain: Denies pain. Cardiovascular: No deficits noted. Respiratory: Reports shortness of jj7 breath just feels like she can't catch her breath. Airway is patent Respiratory effort is even, unlabored, Breath sounds are clear bilaterally. 03:00 Cardiovascular: Rhythm is sinus rhythm. jj7 Vital Signs: 01:41 BP 155 / 82; Pulse 114; Resp 20 S; Temp 97.9(TE); Pulse Ox 100% on R/A; Weight 82.55 kg as6 (R); Height 5 ft. 4 in. (162.56 cm) (R); 03:51 BP 136 / 75; Pulse 103; Resp 17; Temp 98.8; Pulse Ox 100% ; mw1 01:41 Body Mass Index 31.24 (82.55 kg, 162.56 cm) as6 ED Course: 01:27 Patient arrived in ED. bp1 01:31 [facility] Cheatham [facility] kb 01:31 Sukhdeep Matson DO is Attending Physician. kb 01:44 Triage completed. as6 01:45 Arm band placed on. as6 01:45 Patient has correct armband on for positive identification. Bed in low position. Call jj7 light in reach. 01:50 Inserted saline lock: 20 gauge in right antecubital area, using aseptic technique. jj7 02:04 Basic Metabolic Panel Sent. jj7 02:06 CBC with Diff Sent. jj7 02:06 Troponin HS Sent. jj7 04:32 No provider procedures requiring assistance completed. IV discontinued, intact, jj7 bleeding controlled, No redness/swelling at site. Administered Medications: No medications were administered Medication: 04:32 VIS not applicable for this client. jj7 Outcome: 04:18 Discharge ordered by . ms3 04:32 Discharged to home ambulatory. jj7 04:32 Condition: good 04:32 Discharge instructions given to patient. 04:33 Patient left the ED. jj7 Signatures: Brianda Cheatham FNP-C FNP-Ckb Waits, Michael mw1 Sukhdeep Matosn DO DO ms3 Opal Guevara bp1 Jd Merlos, CLINT RN as6 Pepe Moreno RN RN jj7
[2022-08-22 12:29] VITALS: O2SAT 100
[2022-08-22 12:32] VITALS: BP 155/82; TEMP 97.9
--- NOTE | 2022-08-22 13:41 | EKG ---
Test Date: 2022-08-21 Test Time: 02:44:16 Coat Examiner: PAUL MEASUREMENT RESULTS: Intervals: Rate: 108 [place]: 160 QRSD: 86 QT: 338 QTc: 452 [place]: P: 54 NJ: 160 QRS: 43 T: 33 INTERPRETIVE STATEMENTS: Sinus tachycardia Otherwise normal ECG No previous ECG available for comparison Electronically Signed On 08-22-22 13:38:35 CDT by Santosh Rosa
== END 2022-08-21 04:33 | disposition home or self-care (01) ==
LOC: ER 01:24
DX: O26.892 Other specified pregnancy related conditions, second trimester (principal); R03.0 Elevated blood-pressure reading, without diagnosis of hypertension; O99.332 Smoking (tobacco) complicating pregnancy, second trimester; F17.210 Nicotine dependence, cigarettes, uncomplicated; Z3A.18 18 weeks gestation of pregnancy; Z88.5 Allergy status to narcotic agent
CPT/HCPCS: 36415; 80048; 84443; 84484; 85025; 93005